=== PATIENT | male | born 1975 | race African-American/Black ===

== ENCOUNTER 2022-05-16 09:40 | Emergency (ER) | payer OTHER, SELFPAY ==
[2022-05-16] MEDS ORDERED: Ibuprofen 800 MG TAB ONE (10:16)
[2022-05-16] MEDS ORDERED: Lidocaine 1% (PF) 30 ML VIAL ONE (10:49)
[2022-05-16] MEDS ORDERED: Bacitracin 1 PK ONE (12:18)
== END 2022-05-16 12:19 | disposition home or self-care (01) ==
LOC: CSHERS 09:40
DX: S61.412A Laceration without foreign body of left hand, initial encounter (principal); I10 Essential (primary) hypertension; F17.210 Nicotine dependence, cigarettes, uncomplicated; W23.0XXA Caught, crushed, jammed, or pinched between moving objects, initial encounter
CPT/HCPCS: 12002; J2001